=== PATIENT | male | born 2000 | race Two or more races ===

== ENCOUNTER 2021-12-12 22:55 | Emergency (ER) | payer OTHER ==
[~2021-12-12] VITALS: Ht 175.3 cm; Wt 64.4 kg
[2021-12-12 23:48] VITALS: BP 122/78
[2021-12-12] MEDS ORDERED: AMOX875T2 PO (23:53)
== END 2021-12-13 | disposition home or self-care (01) ==
LOC: ER 23:37
DX: J02.9 Acute pharyngitis, unspecified (principal); Z60.2 Problems related to living alone; Z79.899 Other long term (current) drug therapy